=== PATIENT | male | born 1940 | race Caucasian/White ===

== ENCOUNTER 2016-03-21 16:44 | Emergency (ER) ==
[2016-03-21 16:55] VITALS: BP 131/69
--- NOTE | 2016-03-21 17:13 | PROVIDER DOCUMENTATION ---
HPI-Male Problem - General Source: patient <Kim Camejo - Last Filed: 03/21/16 18:04> <Ancelmo Wilson - Last Filed: 03/21/16 18:09> - General Chief Complaint: Male Stated Complaint: UTI Time Seen by Provider: 03/21/16 17:03 Allergies/Adverse Reactions: Patient Allergies Allergy/AdvReac Type Severity Reaction Status Date / Time No Known Allergies Allergy Verified 03/21/16 16:54 - History of Present Illness-Male Nature of Presenting Problem: 75 y/o WM c/o irritation around the null catheter site. He has had it placed for over 1 week not, with it last being changed 2 days ago. Family member with him, states there is blood around the catheter site, with irritation. He was seen for a renal mass by a urologist out in [place]. States afterward having trouble urinating on his own, also has hx of bladder, which he is being monitored for and it has not returned. He has not tried to urinate on his own without a catheter, has f/u on Mar 27. Denies fevers, chills, abdominal pain, n/v/d. (Kim Camejo) Review of Systems - Adult - REVIEW OF SYSTEMS - ADULT Constitutional: reports: no symptoms reported. denies: chills, fever, fatique Eyes: reports: no symptoms reported. denies: blurred vision, double vision, eye pain Ears, Nose, Mouth & Throat: reports: no symptoms reported. denies: ear pain, nose pain, throat pain Cardiovascular: reports: no symptoms reported. denies: chest pain, palpitations Respiratory: reports: no symptoms reported. denies: cough, shortness of breath , wheezing Gastrointestinal: reports: no symptoms reported. denies: abdominal pain, diarrhea, nausea, vomiting Genitourinary: reports: see HPI, urinary retention, other. denies: flank pain, hematuria, urgency Musculoskeletal: reports: no symptoms reported. denies: bone pain, back pain, muscle aches Integumentary: reports: no symptoms reported. denies: rash Neurological: reports: no symptoms reported. denies: ataxia, dizziness/vertigo , headache/migraines Psychiatric: reports: no symptoms reported Endocrine: reports: no symptoms reported Hematologic/Lymphatic: reports: no symptoms reported Allergic/Immunologic: reports: no symptoms reported All Other Systems: Reviewed and Negative <Kim Camejo - Last Filed: 03/21/16 18:04> Past History - Adult - PAST MEDICAL HISTORY-ADULT Review of Records: reports: Old Records Reviewed, Nursing Assessment Review, Medications Reviewed, Social history reviewed & non-contributory. Major Childhood Illnesses: reports: denies history Cardiovascular: reports: denies history, heart valve problem, hyperlipidemia Respiratory: reports: denies history Gastrointestinal: reports: denies history Genitourinary: reports: kidney disease, retention, other (kidney mass) Musculoskeletal: reports: denies history Neurological: reports: denies history Endocrine/Immune: reports: denies history Other Conditions: reports: denies history - PRIOR SURGERIES/PROCEDURES Surgical/Procedure History: reports: reviewed, not pertinent - FAMILY HISTORY Family History: reviewed, not pertinent - SOCIAL HISTORY Smoking: denies Substance Use: none/never Alcohol Use Frequency: never <Kim Camejo - Last Filed: 03/21/16 18:04> Physical Exam-General - PHYSICAL EXAM-ADULT Initial Vital Signs Reviewed: Yes - CONSTITUTIONAL General Appearance: appears well, alert, no apparent distress - EYES Eyes: PERRL/EOMI, pink conjunctivae - HEAD, EARS, NOSE, MOUTH & THROAT HENMT: normocephalic/atraumatic, moist mucous membranes - NECK Neck: non-tender, full range of motion, supple, normal inspection. negative: lymphadenopathy - RESPIRATORY Respiratory: chest non-tender, lungs clear, normal breath sounds, no pleuratic chest pain, no respiratory distress, no accessory muscle use - CARDIOVASCULAR Cardiovascular: normal peripheral pulses, regular rate, rhythm, no edema - GASTROINTESTINAL (ABDOMEN) Abdominal Exam: normal bowel sounds, non tender, soft, no organomegaly, no pulsatile mass. negative: abdominal bruit, abnormal bowel sounds, distended, guarding, rigid, rebound, tenderness - GENITOURINARY Male Genitalia: inguinal lymphadenopathy (minimal bilaterally), other (balanitis ) - LYMPHATIC Lymphatic: no adenopathy - MUSCULOSKELETAL Back Exam: normal inspection, no CVA tenderness, no vertebral tenderness Extremity: normal range of motion, non-tender, normal gait - SKIN Integumentary: normal color, normal turgor, warm/dry - NEUROLOGIC Neurologic: grossly normal, no motor/sensory deficits - PSYCHIATRIC Psych/Mental Status: normal mood/affect, normal thought content, normal thought process, oriented x 3 <Kim Camejo - Last Filed: 03/21/16 18:04> Progress <Kim Camejo - Last Filed: 03/21/16 18:04> <Ancelmo Wilson - Last Filed: 03/21/16 18:09> - PLAN OF CARE/RESULTS Progress/Plan/Lab Results: Vital Signs Temp Pulse Resp BP Pulse Ox 03/21/16 16:51 97.9 F 78 18 131/69 100 No Known Allergies Allergy (Verified 03/21/16 16:54) Ciprofloxacin HCl [Cipro] 500 mg PO BID #14 tablet 03/21/16 Laboratory 03/21/16 17:10 Urine Source CATH Urine Color YELLOW Urine Clarity VERY CLOUDY A Urine pH 5.0 Ur Specific [place] 1.020 Urine Protein 2+(100 mg/dL) A Urine Ketones TRACE Urine Blood 4+ Urine Nitrite NEGATIVE Urine Bilirubin NEGATIVE Urine Urobilinogen NORMAL Urine Microscopic RBC TNTC A Urine WBC 1+ A Urine Microscopic WBC <10 Ur Epithelial Cells <10 Urine Crystals NONE SEEN Urine Bacteria 1+ Urine Casts NONE SEEN Urine Yeast NONE SEEN Urine Glucose NEGATIVE Orders Category Date Time Status Null Cath Discontinuation ONCE Care 03/21/16 17:09 Active UA [URINALYSIS PL W/POSS RFLX CULT] [URINALYSIS] Stat Lab 03/21/16 17:10 Completed URINE CULTURE [RM] Routine Lab 03/21/16 17:47 Ordered (Kim Camejo) Procedures - ADDITIONAL PROCEDURES Additional Procedure: Hernia Reduction (phimosis of penis reduced) <Ancelmo Wilson - Last Filed: 03/21/16 18:09> Departure - Departure Time of Disposition Order: 17:08 Certified Medical Emergency: Emergent <Kim Camejo - Last Filed: 03/21/16 18:04> <Ancelmo Wilson - Last Filed: 03/21/16 18:09> - Departure DIAGNOSIS: Balanitis Disposition: HOME 01 Condition: Stable Additional Instructions: Please follow up with the urologist ED Follow Up Instructions: You have been treated by a care provider in the Emergency Department. These instructions are being provided to you so you can have an understanding of how to care for yourself upon discharge. Upon discharge from the Emergency Department, you are responsible for making arrangements for follow-up care by a physician of your choice. Take all prescribed medications as directed. Return to the Emergency Department immediately for any new or worsening symptoms. You may call the Physician Referral phone number at [phone] to obtain a list of Physicians who are taking new patients. Prescriptions: Ciprofloxacin HCl [Cipro] 500 mg PO BID #14 tablet Referrals: Nando Hoff [Primary Care Provider] - Attestation - Physician/ Mid-level Attestation Patient care was provided by Mid-level provider (ACCOUNTANT CERTIFIED PUBLIC/PA):: Yes Mid-level provider:: Kim Camejo Mid-level documentation review:: The Mid-level provider documentation, treatment plan and medical decision making was reviewed by the physician who agrees with all treatment and medical decision making by the P. <Kim Camejo - Last Filed: 03/21/16 18:04> Physician Attestation
[2016-03-21 17:27] LABS: URINE SOURCE CATH
[2016-03-21 17:35] LABS: BILIRUBIN URINE NEGATIVE (NEGATIVE); BLOOD URINE 4+ (NEGATIVE); CLARITY VERY CLOUDY (CLEAR); COLOR YELLOW; GLUCOSE URINE NEGATIVE (NEGATIVE); LEUKOCYTES URINE 1+ (NEGATIVE); NITRITE URINE NEGATIVE (NEGATIVE); PROTEIN URINE 2+(100 mg/dL) mg/dL (NEGATIVE); UROBILINOGEN URINE NORMAL
[2016-03-21 17:46] LABS: URINE CAST NONE SEEN /LPF; URINE CRYSTAL NONE SEEN /HPF; URINE CULTURE PL NEEDED? YES; URINE EPITHELIAL CELLS <10 /HPF (<10); URINE RBC TNTC /HPF (<10); URINE WBC <10 /HPF (<10)
[2016-03-21] MEDS ORDERED: FLOMAX PO ONE (18:10)
== END 2016-03-21 18:23 | disposition home or self-care (01) ==
LOC: P.ED 16:44
DX: N48.1 Balanitis (principal); R33.9 Retention of urine, unspecified; R59.0 Localized enlarged lymph nodes; E78.5 Hyperlipidemia, unspecified
CPT/HCPCS: 81001; 87088; 99283